=== PATIENT | female | born 1980 | race Caucasian/White ===

== ENCOUNTER 2016-12-28 06:05 | Day surgery (SDC) | payer OTHER ==
[~2016-12-28] VITALS: Ht 170.2 cm; Wt 81.6 kg
[2016-12-28] MEDS ORDERED: MOTRIN600 MG PO (07:02)
[2016-12-28] MEDS ORDERED: RANITIDINE15 MG/ML PO (07:03)
[2016-12-28] MEDS ORDERED: BUPIVACAINE-MPF/EPI 0.25% 30 ML VIAL INJ ONE ×2 (07:28→07:44)
[2016-12-28] MEDS ORDERED: DEXAMETHASONE 4 MG/ML VIAL ONE (07:40)
[2016-12-28] MEDS ORDERED: PROPOFOL 200 MG/20 ML VIAL IV ONE (07:40)
[2016-12-28] MEDS ORDERED: ONDANSETRON 4 MG/2 ML VIAL ONE (07:40)
[2016-12-28] MEDS ORDERED: SEVOFLURANE 250 ML BTL INH ONE (07:40)
[2016-12-28] MEDS ORDERED: LIDOCAINE/EPI MPF 1%1:200000 30 ML VIAL INJ ONE (07:45)
[2016-12-28] MEDS ORDERED: MIDAZOLAM 2 MG/2 ML VIAL ONE (07:49)
[2016-12-28] MEDS ORDERED: fentaNYL 0.05 MG/ML VIAL ONE (07:49)
[2016-12-28] MEDS ORDERED: MEPERIDINE 50 MG/ML SYR ONE (07:49)
[2016-12-28] MEDS ORDERED: LACTATED RINGERS 1,000 ML IV SCH (08:10)
[2016-12-28] MEDS ORDERED: ONDANSETRON 4 MG/2 ML VIAL IVP PRN (08:10)
[2016-12-28] MEDS ORDERED: MEPERIDINE 25 MG/ML SYR IVP PRN (08:10)
[2016-12-28] MEDS ORDERED: HYDROmorphone 1 MG/ML AMP IVP PRN ×2 (08:10→08:35)
[2016-12-28] MEDS ORDERED: diphenhydrAMINE 50 MG/ML VIAL IVP PRN (08:10)
[2016-12-28] MEDS ORDERED: HYDROcodone/APAP 5/325 MG 1 TAB TAB PO PRN (08:35)
[2016-12-28] MEDS ORDERED: MORPHINE SULFATE 4 MG/ML SYR IV PRN (08:35)
[2016-12-28] MEDS ORDERED: MORPHINE SULFATE 2 MG/ML SYR IVP PRN (08:35)
[2016-12-28] MEDS ORDERED: ONDANSETRON 4 MG/2 ML VIAL IV PRN (12:00)
== END 2016-12-28 10:00 | disposition home or self-care (01) ==
LOC: MDS 06:05 → MMU 06:05 → MDS 10:00
PROVIDERS: ATTEND Surgery
DX: M79.9 Soft tissue disorder, unspecified (principal); M06.9 Rheumatoid arthritis, unspecified; R55 Syncope and collapse; I08.2 Rheumatic disorders of both aortic and tricuspid valves; D64.9 Anemia, unspecified; G43.909 Migraine, unspecified, not intractable, without status migrainosus; F32.9 Major depressive disorder, single episode, unspecified
CPT/HCPCS: 21555; 71010; 93005; J0690; J1100; J2001; J2250; J2405; J2704; J3010; J3490; J7060; J7120